=== PATIENT | female | born 1985 | race Caucasian/White ===

== ENCOUNTER 2022-08-13 07:53 | Day surgery (SDC) | payer OTHER ==
[2022-08-13] MEDS ORDERED: LIDOCAINE HCL 2% 100 MG/5 ML IJ ONE (07:54)
[2022-08-13] MEDS ORDERED: Reglan 10 MG/2 ML ONE (08:59)
[2022-08-13] MEDS ORDERED: Versed 2 MG/2 ML Injection ONE (08:59)
[2022-08-13] MEDS ORDERED: Pepcid 20 MG VIAL IV ONE (08:59)
[2022-08-13] MEDS ORDERED: DIPRIVAN 200 MG/20 ML IV ONE ×2 (09:51→10:00)
--- NOTE | 2022-08-13 11:29 | XRAY ---
Indication: Bilateral L4-S1 MBB. Intraoperative fluoroscopy provided for 35 seconds. Single digital spot image submitted for interpretation demonstrates posterior needle tips projecting over the expected left and right L4-S1 nerve roots. Correlate with intraoperative findings/report.
[2022-08-13] MEDS ORDERED: Lactated Ringers 1,000 ML IV ONE (11:34)
--- NOTE | 2022-08-13 12:25 | XRAY ---
35 seconds of fluoroscopy was used in surgery for a bilateral MBB.
== END 2022-08-13 10:30 | disposition home or self-care (01) ==
LOC: SDC-PAIN 07:53
PROVIDERS: ATTEND Psychiatry & Neurology Pain Medicine
DX: M47.816 Spondylosis without myelopathy or radiculopathy, lumbar region (principal); E11.9 Type 2 diabetes mellitus without complications; Z79.899 Other long term (current) drug therapy
CPT/HCPCS: 64493; 64494; 72020; 77002; 81025; 82947; J2250; J2704

== ENCOUNTER 2022-09-10 08:11 | Day surgery (SDC) | payer OTHER ==
[2022-09-10] MEDS ORDERED: BUPIVACAINE 0.5% VIAL IJ ONE (08:12)
[2022-09-10] MEDS ORDERED: DIPRIVAN 200 MG/20 ML IV ONE ×2 (09:48→09:52)
--- NOTE | 2022-09-10 11:39 | XRAY ---
Indication: Bilateral L4-S1 MBB. Intraoperative fluoroscopy provided for 23 seconds. Single digital spot image submitted for interpretation demonstrates posterior needle tips projecting over the expected left and right L4-S1 nerve roots. Correlate with intraoperative findings/report.
--- NOTE | 2022-09-10 12:52 | XRAY ---
23 seconds fluoroscopy time in surgery for bilateral L4-S1 MBB.
[2022-09-10] MEDS ORDERED: Lactated Ringers 1,000 ML IV ONE (13:14)
== END 2022-09-10 10:12 | disposition home or self-care (01) ==
LOC: SDC-PAIN 08:11
PROVIDERS: ATTEND Psychiatry & Neurology Pain Medicine
DX: M47.816 Spondylosis without myelopathy or radiculopathy, lumbar region (principal); E11.9 Type 2 diabetes mellitus without complications; Z79.899 Other long term (current) drug therapy
CPT/HCPCS: 64493; 64494; 72020; 77002; 81025; 82947; J2704

== ENCOUNTER 2022-11-26 08:07 | Day surgery (SDC) | payer OTHER ==
[2022-11-26] MEDS ORDERED: Depo-Medrol 40 MG/ML IM ONE (08:08)
[2022-11-26] MEDS ORDERED: BUPIVACAINE 0.5% VIAL IJ ONE (08:08)
[2022-11-26] MEDS ORDERED: LIDOCAINE HCL 1% 50 MG/5 ML VL PF IJ ONE (08:08)
[2022-11-26 08:23] LABS: HCG URINE TEST NEGATIVE (NEGATIVE)
[2022-11-26] MEDS ORDERED: DIPRIVAN 200 MG/20 ML IV ONE ×2 (09:33→09:48)
[2022-11-26] MEDS ORDERED: Ketamine HCl 50 MG/ML ONE (09:49)
--- NOTE | 2022-11-26 12:22 | XRAY ---
Indication: Right L4-S1 RFA. Intraoperative fluoroscopy provided for 61 seconds. 4 digital spot images submitted for interpretation demonstrates posterior needle tips projecting over the expected right L4-S1 nerve roots. Correlate with intraoperative findings/report.
--- NOTE | 2022-11-26 12:41 | XRAY ---
61 seconds of fluoroscopy was used in surgery for a right L4-S1 RFA.
[2022-11-26] MEDS ORDERED: Lactated Ringers 1,000 ML IV ONE (13:51)
== END 2022-11-26 10:15 | disposition home or self-care (01) ==
LOC: SDC-PAIN 08:07
PROVIDERS: ATTEND Psychiatry & Neurology Pain Medicine
DX: M47.816 Spondylosis without myelopathy or radiculopathy, lumbar region (principal); E11.9 Type 2 diabetes mellitus without complications; Z79.899 Other long term (current) drug therapy
CPT/HCPCS: 36415; 64635; 64636; 72100; 77002; 81025; 82947; J1030; J2001; J2704

== ENCOUNTER 2022-12-03 09:32 | Day surgery (SDC) | payer OTHER ==
[2022-12-03] MEDS ORDERED: LIDOCAINE HCL 1% 50 MG/5 ML VL PF IJ ONE (09:33)
[2022-12-03] MEDS ORDERED: BUPIVACAINE 0.5% VIAL IJ ONE (09:33)
[2022-12-03] MEDS ORDERED: Depo-Medrol 40 MG/ML IM ONE (09:33)
[2022-12-03 09:48] LABS: HCG URINE TEST NEGATIVE (NEGATIVE)
[2022-12-03] MEDS ORDERED: Reglan 10 MG/2 ML ONE (09:48)
[2022-12-03] MEDS ORDERED: Pepcid 20 MG VIAL IV ONE (09:48)
[2022-12-03] MEDS ORDERED: DIPRIVAN 200 MG/20 ML IV ONE ×2 (10:26→10:32)
[2022-12-03] MEDS ORDERED: Lactated Ringers 1,000 ML IV ONE (11:56)
--- NOTE | 2022-12-03 18:18 | XRAY ---
Indication: Left L4-S1 RFA. Intraoperative fluoroscopy provided for 30 seconds. 6 digital spot image submitted for interpretation demonstrates posterior needle tips projecting over the expected left L4-S1 nerve roots. Correlate with intraoperative findings/report.
--- NOTE | 2022-12-03 19:01 | XRAY ---
30 seconds of fluoroscopy was used in surgery for a left L4-S1 RFA.
== END 2022-12-03 11:00 | disposition home or self-care (01) ==
LOC: SDC-PAIN 09:32
PROVIDERS: ATTEND Psychiatry & Neurology Pain Medicine
DX: M47.816 Spondylosis without myelopathy or radiculopathy, lumbar region (principal); E11.9 Type 2 diabetes mellitus without complications; Z79.899 Other long term (current) drug therapy
CPT/HCPCS: 36415; 64635; 64636; 72100; 77002; 81025; 82947; J1030; J2001; J2704

== ENCOUNTER 2023-06-17 07:31 | Day surgery (SDC) | payer OTHER ==
[2023-06-17] MEDS ORDERED: Depo-Medrol 40 MG/ML IM ONE (07:32)
[2023-06-17] MEDS ORDERED: BUPIVACAINE 0.5% VIAL IJ ONE (07:32)
[2023-06-17 07:47] LABS: HCG URINE TEST NEGATIVE (NEGATIVE)
[2023-06-17] MEDS ORDERED: DIPRIVAN 200 MG/20 ML IV ONE ×2 (08:48→08:55)
[2023-06-17] MEDS ORDERED: Versed 2 MG/2 ML Injection ONE (08:48)
[2023-06-17] MEDS ORDERED: Lactated Ringers 1,000 ML IV ONE (10:55)
--- NOTE | 2023-06-17 11:25 | XRAY ---
Indication: Right hip injection Intraoperative fluoroscopy provided for 42 seconds. 3 digital spot images submitted for interpretation demonstrates needle tip projecting lateral to right femur neck. Small amount of contrast injected for needle tip placement. Correlate with intraoperative findings/report.
--- NOTE | 2023-06-17 11:27 | XRAY ---
42 seconds of fluoroscopy was used in surgery for a right intra-articular hip injection.
== END 2023-06-17 09:18 | disposition home or self-care (01) ==
LOC: SDC-PAIN 07:31
PROVIDERS: ATTEND Psychiatry & Neurology Pain Medicine
DX: M16.11 Unilateral primary osteoarthritis, right hip (principal); E11.9 Type 2 diabetes mellitus without complications; Z79.899 Other long term (current) drug therapy
CPT/HCPCS: 20610; 73501; 77002; 81025; 82947; J1030; J2250; J2704; Q9966